=== PATIENT | male | born 1995 | race Two or more races ===

== ENCOUNTER 2018-06-12 18:49 | Emergency (ER) | payer BC ==
[~2018-06-12] VITALS: Ht 172.7 cm; Wt 61.2 kg
--- NOTE | 2018-06-12 19:12 | NUR ---
PT A/OX4, RESPONSIVE TO VERBAL AND TACTILE STIMULI. PT PRESENTS W/ SUTURES TO L EYEBROW AND IS IN THE DEPARTMENT FOR SUTURE REMOVAL. PT DENIES PAIN, C/P, SOB, N/V/D, DIZZINESS, HEADACHE. SUTURE SITE SLIGHTLY EDEMATOUS W/ REDNESS, DOES NOT APPEAR TO BE INFECTED. ER MD AT BEDSIDE.
--- NOTE | 2018-06-12 19:36 | NUR ---
Patient discharged to home in stable conditon. Written and verbal after care instructions given. Patient verbalizes understanding of instructions. SUTURES REMOVED FROM L EYEBROW. ALL BELONGINGS W/ PT. PT SELF-AMBULATED WITHOUT DIFFICULTY.
[2018-06-12 19:37] VITALS: BP 122/70
== END 2018-06-12 19:38 | disposition home or self-care (01) ==
LOC: ER 18:49
DX: S01.112D Laceration without foreign body of left eyelid and periocular area, subsequent encounter (principal); Z48.02 Encounter for removal of sutures; X58.XXXD Exposure to other specified factors, subsequent encounter
CPT/HCPCS: A4217; A4663